=== PATIENT | female | born 1995 ===

== ENCOUNTER 2021-12-29 12:30 | Emergency (ER) | payer SELFPAY ==
[2021-12-29 13:24] VITALS: BP 128/84; PULSE 89; RESP 18; TEMP 36.6; O2SAT 98; BMI 29.2
== END 2021-12-29 21:46 | disposition left against medical advice (07) ==
LOC: HO.ED 21:45
PROVIDERS: Emergency Provider Emergency Medicine
DX: G43.909 Migraine, unspecified, not intractable, without status migrainosus (principal)
CPT/HCPCS: 99281